=== PATIENT | female | born 1990 | race African-American/Black ===

== ENCOUNTER → 2016-11-16 | Outpatient (CLI) | payer MEDICAID ==
--- NOTE | ~2016-11-16 | US128 ---
[id number] [address] [facility] [place], [place] [address] [id number] O MR#: [id number] Acc #: [id number] NAME: MEME VALENCIA : 1990 SEX: F STUDY DATE/TIME: 11/16/2016 13:33 UNIT: [facility] ROOM: STUDY DESCRIPTION: Thyroid Attending Physician: Donell Garzon M.D. Referring Physician: Donell Garzon M.D. Ordering Physician: Donell Garzon M.D. Primary Care Physician: Екатерина Espinal M.D. MEDICAL IMAGING REPORT This report is preliminary unless electronic signature is present EXAM Thyroid ultrasound. DATE OF EXAM 11/16/2016 HISTORY Enlarged thyroid on physical examination, 1 week ago, thyroid goiter, nontoxic nodular goiter. FINDINGS The right thyroid lobe measures 2.5 cm x 5.1 cm x 2 cm while the left lobe measured 2.9 cm x 4.9 cm x 1.4 cm. Both thyroid lobes are homogeneous in echotexture and demonstrate no cystic or solid nodules. There are no masses extrinsic to the thyroid. Normal blood flow is seen throughout both thyroid lobes. IMPRESSION Negative thyroid ultrasound. Dictated by... John Lebron M.D. THIS IS AN ELECTRONICALLY VERIFIED REPORT John Lebron M.D. at 11/17/2016 2:11 PM Oscar TD: 11/16/2016 21:27 JOB #: [id number] MEDICAL IMAGING REPORT Page 1 of 1 COPY
== END | disposition home or self-care (01) ==
LOC: CGUS 13:12
DX: E04.8 Other specified nontoxic goiter (principal); L68.0 Hirsutism; Z68.34 Body mass index [BMI] 34.0-34.9, adult
CPT/HCPCS: 76536